=== PATIENT | female | born 1985 | race Caucasian/White ===

== ENCOUNTER 2017-02-18 14:41 | Inpatient (IN) | payer OTHER ==
[2017-02-18 16:41] VITALS: BMI 28.7
[2017-02-18] MEDS ORDERED: MAG HYDROX/AL HYDROX/SIMETH 30 ML UNIT-DOSE CUP PO PRN (20:24)
[2017-02-18] MEDS ORDERED: diazePAM 5 MG TABLET PO ONE (20:24)
[2017-02-18] MEDS ORDERED: MAGNESIUM HYDROX 2400MG/30ML ORAL SUSPENSION 30 ML CUP PO PRN (20:24)
[2017-02-18] MEDS ORDERED: LOPERAMIDE HCL 2 MG CAPSULE PO PRN (20:24)
[2017-02-18] MEDS ORDERED: MAGNESIUM CITRATE 300 ML BOTTLE PO PRN (20:24)
[2017-02-18] MEDS ORDERED: MENTHOL/PHENOL 1 EACH UD MM PRN (20:24)
[2017-02-18] MEDS ORDERED: NICOTINE POLACRILEX 4 MG GUM BC PRN (20:24)
[2017-02-18] MEDS ORDERED: guaiFENesin/D-METHORPHAN HB 10 ML UNIT-DOSE CUPS PO PRN (20:24)
--- NOTE | 2017-02-18 20:24 | HP ---
CIWA Score - CIWA Score Nausea/Vomitin-Mild Nausea/No Vomiting Muscle Tremors: 4-Moderate,w/Arms Extend Anxiety: 4-Mod. Anxious/Guarded Agitation: 4-Moderately Restless Paroxysmal Sweats: 1-Minimal Palms Moist Orientation: 0-Oriented Tacttile Disturbances: 0-None Auditory Disturbances: 0-None Visual Disturbances: 0-None Headache: 0-None Present CIWA-Ar Total Score: 14 Admission ROS B[facility] - HPI Chief Complaint: WITHDRAWAL SX Allergies/Adverse Reactions: Allergies Allergy/AdvReac Type Severity Reaction Status Date / Time No Known Allergies Allergy Verified 02/18/17 17:34 History of Present Illness: 31 YEARS OLD FEMALE WITH LONG HISTORY OF ALCOHOL XANAX NICOTINE DEPENDENCE DENIES MEDICAL ISSUE HAS DEPRESSIN IS ADMITTED TO DETOX Exam Limitations: No Limitations - Ebola screening Have you traveled outside of the country in the last 21 days: No Have you had contact with anyone from an Ebola affected area: No Have you been sick,other than usual withdrawal symptoms: No Do you have a fever: No - Review of Systems Constitutional: Chills, Changes in sleep, Weight Stable EENT: reports: No Symptoms Reported Respiratory: reports: No Symptoms reported Cardiac: reports: No Symptoms Reported GI: reports: Nausea, Poor Fluid Intake, Abdominal cramping : reports: No Symptoms Reported Musculoskeletal: reports: No Symptoms Reported Integumentary: reports: No Symptoms Reported Neuro: reports: Tremors Endocrine: reports: No Symptoms Reported Hematology: reports: No Symptoms Reported Psychiatric: reports: Judgement Intact, Depressed Other Systems: Reviewed and Negative Patient History - Patient Medical History Hx Anemia: No Hx Asthma: No Hx Chronic Obstructive Pulmonary Disease (COPD): No Hx Cancer: No Hx Cardiac Disorders: No Hx Congestive Heart Failure: No Hx Hypertension: No Hx Hypercholesterolemia: No Hx Pacemaker: No HX Cerebrovascular Accident: No Hx Seizures: No Hx Dementia: No Hx Diabetes: No Hx Gastrointestinal Disorders: No Hx Liver Disease: No Hx Genitourinary Disorders: No Hx Sexually Transmitted Disorders: No Hx Renal Disease (ESRD): No Hx Thyroid Disease: No Hx Human Immunodeficiency Virus (HIV): No Hx Hepatitis C: No Hx Depression: Yes Hx Suicide Attempt: No Hx Bipolar Disorder: No Hx Schizophrenia: No - Patient Surgical History Past Surgical History: No - PPD History Previous Implant?: Yes Documented Results: Negative w/o proof Implanted On Prior [facility] Admission?: No PPD to be Administered?: Yes - Reproductive History Patient is a Female of Child Bearing Age (11 -55 yrs old): Yes Last Menstrual Period: 02/04/17 Patient : No - Smoking Cessation Smoking history: Current every day smoker Have you smoked in the past 12 months: Yes Aproximately how many cigarettes per day: 20 Cigars Per Day: 0 Hx Chewing Tobacco Use: No Initiated information on smoking cessation: Yes 'Breaking Loose' booklet given: 02/18/17 - Substance & Tx. History Hx Alcohol Use: Yes Hx Substance Use: Yes Substance Use Type: Alcohol, Cocaine, Marijuana, Tranquilizers Hx Substance Use Treatment: Yes - Substances Abused Alprazolam (Xanax) Route: Oral Frequency: Daily Amount used: 14mg Age of first use: 30 Date of Last Use: 02/17/17 Cocaine Route: Inhalation Frequency: 1-2 times per week Amount used: 3 grams Age of first use: 20 Date of Last Use: 02/17/17 Marijuana/Hashish Route: Smoking Frequency: Daily Amount used: 10 blunts Age of first use: 17 Date of Last Use: 02/18/17 Alcohol Route: Oral Frequency: 1-2 times per week Amount used: 1 pint cognac Age of first use: 17 Date of Last Use: 02/16/17 percocet Route: Oral Frequency: 3-6 times per week Amount used: 5- 10mg pill Age of first use: 30 Date of Last Use: 02/17/17 Family Disease History - Family Disease History Family History: Denies Admission Physical Exam S - Vital Signs Vital Signs: Vital Signs - 24 hr 02/18/17 16:36 Temperature 96.4 F L Pulse Rate 78 Respiratory 20 Rate Blood Pressure 112/75 - Physical General Appearance: Yes: Nourished, Appropriately Dressed, Mild Distress, Tremorous, Irritable, Sweating, Anxious HEENTM: Yes: Hearing grossly Normal, Normal ENT Inspection, Normocephalic, Normal Voice Respiratory: Yes: Chest Non-Tender, Lungs Clear, Normal Breath Sounds, No Respiratory Distress, No Accessory Muscle Use Neck: Yes: Supple, Trachea in good position Breast: Yes: Breasts Symetrical Cardiology: Yes: Regular Rhythm, Regular Rate, S1, S2 Abdominal: Yes: Non Tender, Soft Genitourinary: Yes: Within Normal Limits Back: Yes: Normal Inspection Musculoskeletal: Yes: full range of Motion, Gait Steady Extremities: Yes: Normal Range of Motion, Non-Tender, Tremors Neurological: Yes: Alert, Motor Strength 5/5, Normal Response, Depressed Affect Integumentary: Yes: Warm Lymphatic: Yes: Within Normal Limits - Diagnostic (1) Sedative, hypnotic or anxiolytic dependence with withdrawal, uncomplicated Current Visit: Yes Status: Acute (2) Nicotine dependence Current Visit: Yes Status: Acute Qualifiers: Nicotine product type: cigarettes Substance use status: in withdrawal Qualified Code(s): F17.213 - Nicotine dependence, cigarettes, with withdrawal (3) Depression Current Visit: Yes Status: Suspected Qualifiers: Depression Type: dysthymia Qualified Code(s): F34.1 - Dysthymic disorder Cleared for Admission [facility] - Detox or Rehab [facility] Level of Care: Medically Managed Detox Regimen/Protocol: Valium [facility] Breath Alcohol Content Breath Alcohol Content: 0 Urine Pregancy Test - Result Urine Test Results: Negative- NO Line Present Urine Drug Screen - Results Drug Screen Negative: No Urine Drug Screen Results: THC-Marijuana, MAXI-Cocaine, BZO-Benzodiazepines
[2017-02-18] MEDS: THIAMINE HCL 100 MG TABLET (FP) PO SCH (21:10)
[2017-02-18] MEDS: diphenhydrAMINE HCL 50 MG CAPSULE PO PRN (21:10)
[2017-02-18] MEDS: diazePAM 5 MG TABLET PO SCH (22:36)
[2017-02-18 23:09] LABS: URINE APPEARANCE TURBID; URINE BILIRUBIN NEGATIVE (NEGATIVE); URINE BLOOD NEGATIVE (NEGATIVE); URINE COLOR LTYELLOW; URINE GLUCOSE (UA) NEGATIVE (NEGATIVE); URINE KETONE NEGATIVE (NEGATIVE); URINE LEUK ESTERASE NEGATIVE (NEGATIVE); URINE NITRITE NEGATIVE (NEGATIVE); URINE PROTEIN NEGATIVE (NEGATIVE); URINE UROBILINOGEN NEGATIVE E.U./dl (0.2-1.0)
[2017-02-19] MEDS: diazePAM 5 MG TABLET PO SCH ×3 (05:53→22:14)
--- NOTE | 2017-02-19 10:04 | PN ---
BHS Progress Note (SOAP) Subjective: sweats, shakes left eye bump , vaginal d/c Objective: 02/19/17 10:03 Vital Signs Temperature 97.2 F L 02/19/17 06:00 Pulse Rate 82 02/19/17 06:00 Respiratory Rate 18 02/19/17 06:00 Blood Pressure 125/81 02/19/17 06:00 O2 Sat by Pulse Oximetry (%) 02/19/17 10:36 pt aox3 in nad lying in bed os chalzion Assessment: 02/19/17 10:03 withdrawal sx;s 02/19/17 10:37 chalzion os 02/19/17 10:39 vaginal d/c Plan: cont. detox increase fluids warm compresses f/up with opthalmology at d/c doxycline 100mg bid diflucan 150mg x 1
[2017-02-19 10:09] LABS: MCH 30.9 pg (25.7-33.7); MCHC 33.7 g/dl (32.0-36.0); MEAN CELL VOLUME 91.7 fl (80-96); MEAN PLT VOLUME 7.9 fl (7.5-11.1); PLATELET COUNT 265 K/MM3 (134-434); WHITE BLOOD COUNT 6.1 K/mm3 (4.0-10.0)
[2017-02-19 10:26] LABS: ALK PHOS 60 U/L (45-117); ANION GAP 6 (8-16); BILIRUBIN,TOTAL 0.3 mg/dL (0.2-1.0); CALCIUM 9.1 mg/dL (8.5-10.1); CO2 27 mmol/L (21-32); CREATININE 0.8 mg/dL (0.55-1.02); GLUCOSE,RANDOM 92 mg/dL (74-106); SGOT/AST 15 U/L (15-37); SGPT/ALT 19 U/L (12-78); TOT PROT 7.4 g/dl (6.4-8.2)
[2017-02-19] MEDS: diazePAM 5 MG TABLET PO PRN ×2 (11:12→19:34)
[2017-02-19] MEDS: PRENATAL VITAMINS W/ FOLIC ACID TABLET (FP) PO SCH (11:12)
[2017-02-19] MEDS: NICOTINE 21 MG/24 HOURS TOPICAL PATCH TD SCH (11:14)
[2017-02-19 11:39] LABS: HIV 1 & 2 AB NEGATIVE; HIV 1 AGp24 NEGATIVE
--- NOTE | 2017-02-19 12:00 | EKG ---
Test Reason : Blood Pressure : / mmHG Vent. Rate : 064 BPM Atrial Rate : 064 BPM P-R Int : 170 ms QRS Dur : 088 ms QT Int : 404 ms P-R-T Axes : 054 059 059 degrees QTc Int : 416 ms SINUS RHYTHM WITH MARKED SINUS ARRHYTHMIA WITH OCCASIONAL PREMATURE VENTRICULAR COMPLEXES OTHERWISE NORMAL ECG NO PREVIOUS ECGS AVAILABLE Confirmed by LUCIANA PEREZ MD ([id number]) on 02/19/2017 11:59:39 AM Referred By: Ismael Orozco Confirmed By:LUCIANA PEREZ MD
--- NOTE | 2017-02-19 12:00 | EKG ---
Test Reason : Blood Pressure : / mmHG Vent. Rate : 075 BPM Atrial Rate : 075 BPM P-R Int : 178 ms QRS Dur : 084 ms QT Int : 384 ms P-R-T Axes : 059 060 061 degrees QTc Int : 428 ms NORMAL SINUS RHYTHM NORMAL ECG WHEN COMPARED WITH ECG OF 18-FEB-2017 20:15, PREMATURE VENTRICULAR COMPLEXES ARE NO LONGER PRESENT Confirmed by CHRIS JONES, LUCIANA ([id number]) on 02/19/2017 11:59:34 AM Referred By: Ismael Orozco Confirmed By:LUCIANA PEREZ MD
[2017-02-19] MEDS: ACETAMINOPHEN 325 MG TABLET (FP) PO PRN ×2 (14:48→19:37)
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
[2017-02-19] MEDS: THIAMINE HCL 100 MG TABLET (FP) PO SCH (22:14)
[2017-02-19] MEDS: hydrOXYzine PAMOATE 50 MG CAPSULE (FP) PO PRN (22:14)
[2017-02-19] MEDS ORDERED: cloNIDine HCL 0.1 MG TABLET PO ONE (23:07)
[2017-02-19] MEDS ORDERED: CYCLOBENZAPRINE HCL 10 MG TABLET (FP) PO ONE (23:07)
[2017-02-20] MEDS: ACETAMINOPHEN 325 MG TABLET (FP) PO PRN (05:34)
[2017-02-20] MEDS: diazePAM 5 MG TABLET PO PRN ×3 (05:34→17:41)
[2017-02-20] MEDS ORDERED: FLUCONAZOLE 50 MG TABLET PO ONE (09:59)
--- NOTE | 2017-02-20 10:06 | PN ---
[facility] CIWA - CIWA Score Nausea/Vomitin-Mild Nausea/No Vomiting Muscle Tremors: 3 Anxiety: 3 Agitation: 3 Paroxysmal Sweats: 3 Orientation: 0-Oriented Tacttile Disturbances: 0-None Auditory Disturbances: 0-None Visual Disturbances: 0-None Headache: 1-Very Mild CIWA-Ar Total Score: 14 S Progress Note (SOAP) Subjective: nasal congestion vaginal d/c body aches headache interrupted sleep Objective: 02/20/17 10:04 Vital Signs Temperature 97.7 F 02/20/17 09:57 Pulse Rate 80 02/20/17 09:57 Respiratory Rate 20 02/20/17 09:57 Blood Pressure 114/84 02/20/17 09:57 O2 Sat by Pulse Oximetry (%) Laboratory Tests 02/18/17 02/18/17 02/19/17 07:00 22:06 07:00 WBC RBC Hgb Hct MCV MCHC RDW Plt Count MPV Sodium Potassium Chloride Carbon Dioxide Anion Gap BUN Creatinine Creat Clearance w eGFR Random Glucose Calcium Total Bilirubin AST ALT Alkaline Phosphatase Total Protein Albumin Urine Color Ltyellow Urine Appearance Turbid Urine pH 7.0 Ur Specific [place] 1.020 Urine Protein Negative Urine Glucose (UA) Negative Urine Ketones Negative Urine Blood Negative Urine Nitrite Negative Urine Bilirubin Negative Urine Urobilinogen Negative Ur Leukocyte Esterase Negative RPR Titer Hepatitis C Antibody <0.1 HIV 1&2 Antibody Screen Negative HIV P24 Antigen Negative 02/19/17 02/19/17 02/19/17 07:00 07:00 07:00 WBC 6.1 RBC 4.49 Hgb 13.9 Hct 41.1 MCV 91.7 MCHC 33.7 RDW 13.0 Plt Count 265 MPV 7.9 Sodium 138 Potassium 4.3 Chloride 105 Carbon Dioxide 27 Anion Gap 6 L BUN 11 Creatinine 0.8 Creat Clearance w eGFR > 60 Random Glucose 92 Calcium 9.1 Total Bilirubin 0.3 AST 15 ALT 19 Alkaline Phosphatase 60 Total Protein 7.4 Albumin 4.0 Urine Color Urine Appearance Urine pH Ur Specific [place] Urine Protein Urine Glucose (UA) Urine Ketones Urine Blood Urine Nitrite Urine Bilirubin Urine Urobilinogen Ur Leukocyte Esterase RPR Titer Nonreactive Hepatitis C Antibody HIV 1&2 Antibody Screen HIV P24 Antigen awake/alert ambulating no acute distress Assessment: 02/20/17 10:05 withdrawal sx Plan: continue detox increase fluids diflucan po x one ocean spray motrin/tylenol prn
[2017-02-20] MEDS: PRENATAL VITAMINS W/ FOLIC ACID TABLET (FP) PO SCH (10:41)
[2017-02-20] MEDS: diazePAM 5 MG TABLET PO SCH ×2 (10:41→22:22)
[2017-02-20] MEDS: NICOTINE 21 MG/24 HOURS TOPICAL PATCH TD SCH (10:42)
[2017-02-20] MEDS ORDERED: cloNIDine HCL 0.1 MG TABLET PO ONE (10:52)
[2017-02-20] MEDS: IBUPROFEN 400 MG TABLET (FP) PO PRN ×2 (11:40→22:22)
[2017-02-20] MEDS: SODIUM CHLORIDE NASAL SPRAY 44 ML BOTTLE NS PRN ×2 (11:40→22:23)
[2017-02-20] MEDS: hydrOXYzine PAMOATE 50 MG CAPSULE (FP) PO PRN (20:09)
[2017-02-20] MEDS: P-EPHED 60MG/TRIPROLIDI 2.5MG TABLET PO PRN (20:46)
[2017-02-20] MEDS: THIAMINE HCL 100 MG TABLET (FP) PO SCH (22:22)
[2017-02-20] MEDS: CYCLOBENZAPRINE HCL 10 MG TABLET (FP) PO PRN (22:22)
[2017-02-20] MEDS: diphenhydrAMINE HCL 50 MG CAPSULE PO PRN (22:24)
[2017-02-21] MEDS: diazePAM 5 MG TABLET PO PRN ×3 (06:58→16:46)
[2017-02-21] MEDS: diazePAM 5 MG TABLET PO SCH ×2 (10:59→22:17)
[2017-02-21] MEDS: PRENATAL VITAMINS W/ FOLIC ACID TABLET (FP) PO SCH (10:59)
[2017-02-21] MEDS: cloNIDine HCL 0.1 MG TABLET PO SCH (11:00)
[2017-02-21] MEDS: NICOTINE 21 MG/24 HOURS TOPICAL PATCH TD SCH (11:00)
--- NOTE | 2017-02-21 11:18 | PN ---
[facility] Progress Note (SOAP) Subjective: irritable interrupted sleep agitation Objective: 02/21/17 11:17 Vital Signs Temperature 97.1 F L 02/21/17 10:18 Pulse Rate 88 02/21/17 10:18 Respiratory Rate 16 02/21/17 10:18 Blood Pressure 117/73 02/21/17 10:18 O2 Sat by Pulse Oximetry (%) awake/alert ambulating no acute distress Assessment: 02/21/17 11:18 withdrawal sx Plan: continue detox d/c in am
[2017-02-21] MEDS: IBUPROFEN 400 MG TABLET (FP) PO PRN (12:29)
[2017-02-21] MEDS: P-EPHED 60MG/TRIPROLIDI 2.5MG TABLET PO PRN ×2 (12:31→20:08)
[2017-02-21] MEDS: ACETAMINOPHEN 325 MG TABLET (FP) PO PRN (20:07)
[2017-02-21] MEDS: hydrOXYzine PAMOATE 50 MG CAPSULE (FP) PO PRN (22:17)
[2017-02-21] MEDS: THIAMINE HCL 100 MG TABLET (FP) PO SCH (22:17)
[2017-02-21] MEDS: CYCLOBENZAPRINE HCL 10 MG TABLET (FP) PO PRN (22:18)
[2017-02-22] MEDS: diphenhydrAMINE HCL 50 MG CAPSULE PO PRN (00:44)
[2017-02-22] MEDS: hydrOXYzine PAMOATE 50 MG CAPSULE (FP) PO PRN (05:34)
[2017-02-22] MEDS: P-EPHED 60MG/TRIPROLIDI 2.5MG TABLET PO PRN (05:34)
[2017-02-22] MEDS: ACETAMINOPHEN 325 MG TABLET (FP) PO PRN (05:34)
[2017-02-22 06:49] VITALS: BP 106/61; PULSE 79; TEMP 97.4
--- NOTE | 2017-02-22 09:30 | DS ---
[facility] Detox Discharge Summary Admission Date: 02/18/17 Discharge Date: 02/22/17 - History Present History: Alcohol Dependence, Cannabis Dependence, Cocaine Dependence, Sedative Dependence Pertinent Past History: Insomnia - Physical Exam Results Vital Signs: Vital Signs Temperature 97.4 F L 02/22/17 06:49 Pulse Rate 79 02/22/17 06:49 Respiratory Rate 16 02/22/17 06:49 Blood Pressure 106/61 02/22/17 06:49 O2 Sat by Pulse Oximetry (%) Pertinent Admission Physical Exam Findings: Withdrawal sx. Laboratory Last Values WBC 6.1 K/mm3 (4.0-10.0) 02/19/17 07:00 RBC 4.49 M/mm3 (3.60-5.2) 02/19/17 07:00 Hgb 13.9 GM/dL (10.7-15.3) 02/19/17 07:00 Hct 41.1 % (32.4-45.2) 02/19/17 07:00 MCV 91.7 fl (80-96) 02/19/17 07:00 MCHC 33.7 g/dl (32.0-36.0) 02/19/17 07:00 RDW 13.0 % (11.6-15.6) 02/19/17 07:00 Plt Count 265 K/MM3 (134-434) 02/19/17 07:00 MPV 7.9 fl (7.5-11.1) 02/19/17 07:00 Sodium 138 mmol/L (136-145) 02/19/17 07:00 Potassium 4.3 mmol/L (3.5-5.1) 02/19/17 07:00 Chloride 105 mmol/L (98-107) 02/19/17 07:00 Carbon Dioxide 27 mmol/L (21-32) 02/19/17 07:00 Anion Gap 6 (8-16) L 02/19/17 07:00 BUN 11 mg/dL (7-18) 02/19/17 07:00 Creatinine 0.8 mg/dL (0.55-1.02) 02/19/17 07:00 Creat Clearance w eGFR > 60 (>60) 02/19/17 07:00 Random Glucose 92 mg/dL (74-106) 02/19/17 07:00 Calcium 9.1 mg/dL (8.5-10.1) 02/19/17 07:00 Total Bilirubin 0.3 mg/dL (0.2-1.0) 02/19/17 07:00 AST 15 U/L (15-37) 02/19/17 07:00 ALT 19 U/L (12-78) 02/19/17 07:00 Alkaline Phosphatase 60 U/L (45-117) 02/19/17 07:00 Total Protein 7.4 g/dl (6.4-8.2) 02/19/17 07:00 Albumin 4.0 g/dl (3.4-5.0) 02/19/17 07:00 Urine Color Ltyellow 02/18/17 22:06 Urine Appearance Turbid 02/18/17 22:06 Urine pH 7.0 (5.0-8.0) 02/18/17 22:06 Ur Specific [place] 1.020 (1.005-1.025) 02/18/17 22:06 Urine Protein Negative (NEGATIVE) 02/18/17 22:06 Urine Glucose (UA) Negative (NEGATIVE) 02/18/17 22:06 Urine Ketones Negative (NEGATIVE) 02/18/17 22:06 Urine Blood Negative (NEGATIVE) 02/18/17 22:06 Urine Nitrite Negative (NEGATIVE) 02/18/17 22:06 Urine Bilirubin Negative (NEGATIVE) 02/18/17 22:06 Urine Urobilinogen Negative E.U./dl (0.2-1.0) 02/18/17 22:06 Ur Leukocyte Esterase Negative (NEGATIVE) 02/18/17 22:06 RPR Titer Nonreactive (NONREACTIVE) 02/19/17 07:00 Hepatitis C Antibody <0.1 s/co ratio (0.0-0.9) 02/18/17 07:00 HIV 1&2 Antibody Screen Negative 02/19/17 07:00 HIV P24 Antigen Negative 02/19/17 07:00 labs noted - Treatment Hospital Course: Detox Protocol Followed, Detoxed Safely, Responded well, Discharged Condition Good, Rehab Referral Accepted Patient has Accepted a Rehab Referral to: Self Help group - Medication Discharge Medications: Ambulatory Orders NK [No Known Home Medication] 02/18/17 - Diagnosis (1) Cocaine dependence Current Visit: Yes Status: Acute Qualifiers: Substance use status: uncomplicated Qualified Code(s): F14.20 - Cocaine dependence, uncomplicated (2) Insomnia Current Visit: Yes Status: Acute Qualifiers: Insomnia type: alcohol-induced Qualified Code(s): F10.982 - Alcohol use, unspecified with alcohol-induced sleep disorder (3) Marijuana dependence Current Visit: Yes Status: Acute (4) Nicotine dependence Current Visit: Yes Status: Acute Qualifiers: Nicotine product type: cigarettes Substance use status: in withdrawal Qualified Code(s): F17.213 - Nicotine dependence, cigarettes, with withdrawal (5) Sedative, hypnotic or anxiolytic dependence with withdrawal, uncomplicated Current Visit: Yes Status: Acute (6) Substance induced mood disorder Current Visit: Yes Status: Acute - AMA Did Patient Leave Against Medical Advice: No
[2017-02-22] MEDS: PRENATAL VITAMINS W/ FOLIC ACID TABLET (FP) PO SCH (10:00)
[2017-02-22] MEDS: cloNIDine HCL 0.1 MG TABLET PO SCH (10:00)
[2017-02-22] MEDS ORDERED: diazePAM 5 MG TABLET PO SCH (10:00)
== END 2017-02-22 10:12 | disposition home or self-care (01) | DRG 773 ==
LOC: YASAS 14:41 → Y6N 19:02
PROVIDERS: ADMIT Internal Medicine Addiction Medicine; ATTEND Internal Medicine Addiction Medicine
PROC: HZ2ZZZZ Detoxification Services for Substance Abuse Treatment (ICD-10-PCS; principal; 2017-02-22)
DX: F11.20 Opioid dependence, uncomplicated (principal); F13.230 Sedative, hypnotic or anxiolytic dependence with withdrawal, uncomplicated; F10.230 Alcohol dependence with withdrawal, uncomplicated; F14.20 Cocaine dependence, uncomplicated; F12.20 Cannabis dependence, uncomplicated; F17.213 Nicotine dependence, cigarettes, with withdrawal; F10.982 Alcohol use, unspecified with alcohol-induced sleep disorder; F19.24 Other psychoactive substance dependence with psychoactive substance-induced mood disorder; F34.1 Dysthymic disorder
CPT/HCPCS: 36415; 80053; 81003; 85027; 86593; 86803; 87389; 93005; 93010; J0735

== ENCOUNTER 2018-02-09 17:50 | Inpatient (IN) | payer OTHER ==
[2018-02-09 18:43] VITALS: BMI 30.7
--- NOTE | 2018-02-09 19:41 | HP ---
Admission [facility] Chief Complaint: " I am here for rehab" Allergies/Adverse Reactions: Allergies Allergy/AdvReac Type Severity Reaction Status Date / Time No Known Allergies Allergy Verified 02/09/18 18:59 History of Present Illness: 32 yo female with hx of THC, cocaine, and alcohol dependence is here seeking rehabilitation. Denies suicidal / homicidal ideation. Denies hx of blackout or seizures. Last detox [facility] 02/18/17 - 02/22/17. Longest period of sobriety 2 months. Exam Limitations: No Limitations - Ebola screening Have you been sick,other than usual withdrawal symptoms: No - Review of Systems Constitutional: Changes in sleep EENT: reports: No Symptoms Reported Respiratory: reports: No Symptoms reported Cardiac: reports: No Symptoms Reported GI: reports: No Symptoms Reported : reports: No Symptoms Reported Musculoskeletal: reports: Joint Pain (lower extremities) Integumentary: reports: No Symptoms Reported Neuro: reports: No Symptoms reported Endocrine: reports: No Symptoms Reported Hematology: reports: No Symptoms Reported Psychiatric: reports: Orientated x3, Anxious Other Systems: Reviewed and Negative Patient History - Patient Medical History Hx Anemia: No Hx Asthma: No Hx Chronic Obstructive Pulmonary Disease (COPD): No Hx Cancer: No Hx Cardiac Disorders: No Hx Congestive Heart Failure: No Hx Hypertension: No Hx Hypercholesterolemia: No Hx Pacemaker: No HX Cerebrovascular Accident: No Hx Seizures: No Hx Dementia: No Hx Diabetes: No Hx Gastrointestinal Disorders: No Hx Liver Disease: No Hx Genitourinary Disorders: No Hx Sexually Transmitted Disorders: No Hx Renal Disease (ESRD): No Hx Thyroid Disease: No Hx Human Immunodeficiency Virus (HIV): No ( last tested 2 months ago ) Hx Hepatitis C: No Hx Depression: Yes Hx Suicide Attempt: No Hx Bipolar Disorder: No Hx Schizophrenia: No - Patient Surgical History Past Surgical History: No - PPD History Previous Implant?: Yes Documented Results: Negative w/proof Date: 02/20/17 PPD to be Administered?: No - Reproductive History Patient is a Female of Child Bearing Age (11 -55 yrs old): Yes Last Menstrual Period: 01/20/18 Patient : No - Smoking Cessation Smoking history: Former smoker Have you smoked in the past 12 months: No Cigars Per Day: 0 Hx Chewing Tobacco Use: No Initiated information on smoking cessation: Yes 'Breaking Loose' booklet given: 02/09/18 - Substance & Tx. History Hx Alcohol Use: Yes Hx Substance Use: Yes Substance Use Type: Alcohol, Cocaine, Marijuana Hx Substance Use Treatment: Yes (Last detox [facility] 02/18/17 - 02/22/17) - Substances Abused Cocaine Route: Inhalation Frequency: Daily Amount used: $200 - $300 Age of first use: 17 Date of Last Use: 02/08/18 Marijuana/Hashish Route: Smoking Frequency: 1-3 times last 30 days Amount used: 2-3 blunts Age of first use: 14 Date of Last Use: 02/08/18 Alcohol Route: Oral Frequency: 3-6 times per week Amount used: 3 pints liquor Age of first use: 16 Date of Last Use: 02/08/18 Family Disease History - Family Disease History Family History: Unable to Obtain Admission Physical Exam [facility] - Vital Signs Vital Signs: Vital Signs - 24 hr 02/09/18 18:09 Temperature 97.9 F Pulse Rate 82 Respiratory 18 Rate Blood Pressure 115/69 - Physical General Appearance: Yes: Nourished, Disheveled, Irritable, Anxious HEENTM: Yes: EOMI, Hearing grossly Normal, Normal ENT Inspection, Normocephalic , Normal Voice, RODRIGO, Pharynx Normal, Tm's normal Respiratory: Yes: Chest Non-Tender, Lungs Clear, Normal Breath Sounds, No Respiratory Distress, No Accessory Muscle Use Neck: Yes: No masses,lesions,Nodules, Trachea in good position Breast: Yes: Breast Exam Deferred Cardiology: Yes: Regular Rhythm, Regular Rate Abdominal: Yes: Normal Bowel Sounds, Non Tender, Soft, Protuberent Genitourinary: Yes: Within Normal Limits Back: Yes: Normal Inspection Musculoskeletal: Yes: full range of Motion, Gait Steady, Pelvis Stable, Muscle Pain (bl lower extremities) Extremities: Yes: Normal Capillary Refill, Normal Inspection, Normal Range of Motion Neurological: Yes: brand leader II-XII NML intact, Fully Oriented, Alert, Motor Strength 5/5, Depressed Affect Integumentary: Yes: Normal Color, Dry, Warm Lymphatic: Yes: Within Normal Limits - Diagnostic (1) Alcohol dependence Current Visit: Yes Status: Acute Qualifiers: Substance use status: uncomplicated Qualified Code(s): F10.20 - Alcohol dependence, uncomplicated (2) Cocaine dependence Current Visit: Yes Status: Acute Qualifiers: Substance use status: uncomplicated Qualified Code(s): F14.20 - Cocaine dependence, uncomplicated (3) Insomnia Current Visit: Yes Status: Acute Qualifiers: Insomnia type: alcohol-induced Qualified Code(s): F10.982 - Alcohol use, unspecified with alcohol-induced sleep disorder (4) Marijuana dependence Current Visit: No Status: Acute (5) Nicotine dependence Current Visit: Yes Status: Acute Qualifiers: Nicotine product type: cigarettes Substance use status: in withdrawal Qualified Code(s): F17.213 - Nicotine dependence, cigarettes, with withdrawal [facility] Breath Alcohol Content Breath Alcohol Content: 0 Urine Pregancy Test - Result Urine Test Results: Negative- NO Line Present Urine Drug Screen - Results Drug Screen Negative: No Urine Drug Screen Results: THC-Marijuana, MAXI-Cocaine Inpatient Rehab Admission - Initial Determination Are CD services needed?: Yes Free of communicable disease: Yes Not in need of hospitalization: Yes - Rehab Admission Criteria Previous failed treatment: Yes Poor recovery environment: Yes Comorbidities: Yes Lacks judgement: Yes Patient is meeting Inpatient Rehab admission criteria:: Yes
[2018-02-09] MEDS ORDERED: LOPERAMIDE HCL 2 MG CAPSULE PO PRN (19:58)
[2018-02-09] MEDS ORDERED: MAG HYDROX/AL HYDROX/SIMETH 30 ML UNIT-DOSE CUP PO PRN (19:58)
[2018-02-09] MEDS ORDERED: MAGNESIUM HYDROX 2400MG/30ML ORAL SUSPENSION 30 ML CUP PO PRN (19:58)
[2018-02-09] MEDS ORDERED: ACETAMINOPHEN 325 MG TABLET (FP) PO PRN (19:58)
[2018-02-09] MEDS ORDERED: NICOTINE POLACRILEX 2 MG GUM BC PRN (19:58)
[2018-02-09] MEDS ORDERED: P-EPHED 60MG/TRIPROLIDI 2.5MG TABLET PO PRN (19:58)
[2018-02-09] MEDS ORDERED: guaiFENesin/D-METHORPHAN HB 10 ML UNIT-DOSE CUPS PO PRN (19:58)
[2018-02-09] MEDS ORDERED: MENTHOL/PHENOL 1 EACH UD MM PRN (19:58)
[2018-02-09] MEDS ORDERED: MAGNESIUM CITRATE 300 ML BOTTLE PO PRN (19:58)
[2018-02-09] MEDS ORDERED: diphenhydrAMINE HCL 25 MG CAPSULE (FP) PO ONE (20:02)
[2018-02-09] MEDS ORDERED: TUBERCULIN PPD 5 TU/0.1ML VIAL ID ONE (20:43)
[2018-02-09] MEDS ORDERED: diphenhydrAMINE HCL 50 MG CAPSULE PO ONE (20:45)
[2018-02-09] MEDS: THIAMINE HCL 100 MG TABLET (FP) PO SCH (22:19)
[2018-02-10 10:04] LABS: HEMATOCRIT 37.4 % (32.4-45.2); HEMOGLOBIN 12.8 GM/dL (10.7-15.3); MCH 30.7 pg (25.7-33.7); MCHC 34.2 g/dl (32.0-36.0); MEAN CELL VOLUME 89.8 fl (80-96); PLATELET COUNT 247 K/MM3 (134-434); RBC 4.16 M/mm3 (3.60-5.2); RDW 13.1 % (11.6-15.6); WHITE BLOOD COUNT 5.3 K/mm3 (4.0-10.0)
[2018-02-10 10:13] LABS: CHLORIDE 110 mmol/L (98-107); POTASSIUM 4.2 mmol/L (3.5-5.1); SODIUM 142 mmol/L (136-145)
[2018-02-10] MEDS: NICOTINE 14 MG/24 HOURS TOPICAL PATCH TD SCH (10:20)
[2018-02-10] MEDS: PRENATAL VITAMINS W/ FOLIC ACID TABLET (FP) PO SCH (10:20)
[2018-02-10 10:36] LABS: ALBUMIN 3.6 g/dl (3.4-5.0); ALK PHOS 56 U/L (45-117); ANION GAP 5 (8-16); BILIRUBIN,TOTAL 1.4 mg/dL (0.2-1.0); BLOOD UREA NITROGEN 14 mg/dL (7-18); CALCIUM 8.3 mg/dL (8.5-10.1); CO2 27 mmol/L (21-32); CREATININE 0.8 mg/dL (0.55-1.02); GLUCOSE,RANDOM 89 mg/dL (74-106); SGOT/AST 20 U/L (15-37); SGPT/ALT 19 U/L (12-78); TOT PROT 6.7 g/dl (6.4-8.2)
[2018-02-10 11:02] LABS: URINE APPEARANCE TURBID; URINE BILIRUBIN NEGATIVE (<2.0 mg/dL); URINE COLOR YELLOW; URINE GLUCOSE (UA) NEGATIVE (NEGATIVE); URINE KETONE TRACE (NEGATIVE); URINE LEUK ESTERASE NEGATIVE (NEGATIVE); URINE NITRITE NEGATIVE (NEGATIVE); URINE UROBILINOGEN NEGATIVE mg/dL (0.2-1.0)
[2018-02-10 11:06] LABS: URINE PROTEIN 1+ (NEGATIVE)
[2018-02-10 11:10] LABS: URINE BACTERIA MANY /hpf (NONE SEEN)
[2018-02-10] MEDS: hydrOXYzine PAMOATE 50 MG CAPSULE (FP) PO PRN ×2 (16:01→21:15)
[2018-02-10] MEDS: IBUPROFEN 400 MG TABLET (FP) PO PRN (16:02)
--- NOTE | 2018-02-10 16:23 | EKG ---
Test Reason : Blood Pressure : / mmHG Vent. Rate : 077 BPM Atrial Rate : 077 BPM P-R Int : 168 ms QRS Dur : 084 ms QT Int : 422 ms P-R-T Axes : 063 069 066 degrees QTc Int : 477 ms NORMAL SINUS RHYTHM NORMAL ECG WHEN COMPARED WITH ECG OF 19-FEB-2017 05:24, QT HAS LENGTHENED Confirmed by MD Tamir, Kevin ([id number]) on 02/10/2018 4:22:33 PM Referred By: Martha Krishna Confirmed By:Kevin Garnett MD
[2018-02-10] MEDS: MELATONIN 5 MG TABLETS PO PRN (21:15)
[2018-02-10] MEDS: THIAMINE HCL 100 MG TABLET (FP) PO SCH (21:15)
[2018-02-11] MEDS: hydrOXYzine PAMOATE 50 MG CAPSULE (FP) PO PRN ×3 (07:46→21:15)
[2018-02-11] MEDS: IBUPROFEN 400 MG TABLET (FP) PO PRN (07:46)
--- NOTE | 2018-02-11 09:16 | HP ---
Psychiatrist Admission - Data Date of interview: 02/11/18 Admission source: [facility] Identifying data: Dave is the first admission to [address] [place] [address] for this 32 years old H single female mother of 13 yo daughter, domiciled,employed. Medical History: unremarkable Psychiatric History: denies Physical/Sexual Abuse/Trauma History: denirs Vital Signs: Vital Signs - 24 hr 02/11/18 02/11/18 02/11/18 00:30 03:30 07:06 Temperature 97.9 F Pulse Rate 80 Respiratory 17 17 18 Rate Blood Pressure 115/80 Allergies/Adverse Reactions: Allergies Allergy/AdvReac Type Severity Reaction Status Date / Time No Known Allergies Allergy Verified 02/09/18 18:59 Concur with the findings of this exam: Yes - Substance Abuse/Tx History Hx Alcohol Use: Yes (reports drinking since 16 yo,vodka) Hx Substance Use: Yes Substance Use Type: Alcohol, Cocaine Hx Substance Use Treatment: Yes (this is her first inpatient rehabilitation , longest abstinence just a few m) Mental Status Exam - Mental Status Exam Alert and Oriented to: Time, Place, Person Cognitive Function: Grossly Intact Patient Appearance: Well Groomed Mood: Sad Affect: Mood Congruent, Labile Patient Behavior: Cooperative Speech Pattern: Clear Voice Loudness: Normal Thought Process: Goal Oriented Thought Disorder: Not Present Hallucinations: Denies Suicidal Ideation: Denies Homicidal Ideation: Denies Insight/Judgement: Fair Sleep: Well Appetite: Good Muscle strength/Tone: Normal Psychiatric Findings - Problem List ([place] 1, 2,3) (1) Alcohol dependence Current Visit: Yes Status: Chronic Qualifiers: Substance use status: uncomplicated Qualified Code(s): F10.20 - Alcohol dependence, uncomplicated (2) Cocaine dependence Current Visit: Yes Status: Chronic Qualifiers: Substance use status: uncomplicated Qualified Code(s): F14.20 - Cocaine dependence, uncomplicated (3) Nicotine dependence Current Visit: Yes Status: Chronic Qualifiers: Nicotine product type: cigarettes Substance use status: in withdrawal Qualified Code(s): F17.213 - Nicotine dependence, cigarettes, with withdrawal (4) Marijuana dependence Current Visit: Yes Status: Chronic (5) Opiate dependence Current Visit: Yes Status: Chronic (6) Substance induced mood disorder Current Visit: No Status: Acute (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
[2018-02-11] MEDS: PRENATAL VITAMINS W/ FOLIC ACID TABLET (FP) PO SCH (10:12)
[2018-02-11] MEDS: NICOTINE 14 MG/24 HOURS TOPICAL PATCH TD SCH (10:12)
[2018-02-11] MEDS: MELATONIN 5 MG TABLETS PO PRN (21:15)
[2018-02-11] MEDS: THIAMINE HCL 100 MG TABLET (FP) PO SCH (21:15)
[2018-02-12] MEDS: hydrOXYzine PAMOATE 50 MG CAPSULE (FP) PO PRN ×3 (09:58→19:02)
[2018-02-12] MEDS: NICOTINE 14 MG/24 HOURS TOPICAL PATCH TD SCH (09:58)
[2018-02-12] MEDS: PRENATAL VITAMINS W/ FOLIC ACID TABLET (FP) PO SCH (09:58)
--- NOTE | 2018-02-12 14:35 | PN ---
[facility] Progress Note Note: Vital Signs Temperature 97.4 F L 02/12/18 06:42 Pulse Rate 62 02/12/18 06:42 Respiratory Rate 18 02/12/18 06:42 Blood Pressure 121/83 02/12/18 06:42 O2 Sat by Pulse Oximetry (%) Laboratory Last Values WBC 5.3 K/mm3 (4.0-10.0) 02/10/18 07:30 RBC 4.16 M/mm3 (3.60-5.2) 02/10/18 07:30 Hgb 12.8 GM/dL (10.7-15.3) 02/10/18 07:30 Hct 37.4 % (32.4-45.2) 02/10/18 07:30 MCV 89.8 fl (80-96) 02/10/18 07:30 MCH 30.7 pg (25.7-33.7) 02/10/18 07:30 MCHC 34.2 g/dl (32.0-36.0) 02/10/18 07:30 RDW 13.1 % (11.6-15.6) 02/10/18 07:30 Plt Count 247 K/MM3 (134-434) 02/10/18 07:30 MPV 8.0 fl (7.5-11.1) 02/10/18 07:30 Sodium 142 mmol/L (136-145) 02/10/18 07:30 Potassium 4.2 mmol/L (3.5-5.1) 02/10/18 07:30 Chloride 110 mmol/L (98-107) H 02/10/18 07:30 Carbon Dioxide 27 mmol/L (21-32) 02/10/18 07:30 Anion Gap 5 (8-16) L 02/10/18 07:30 BUN 14 mg/dL (7-18) 02/10/18 07:30 Creatinine 0.8 mg/dL (0.55-1.02) 02/10/18 07:30 Creat Clearance w eGFR > 60 (>60) 02/10/18 07:30 Random Glucose 89 mg/dL (74-106) 02/10/18 07:30 Calcium 8.3 mg/dL (8.5-10.1) L 02/10/18 07:30 Total Bilirubin 1.4 mg/dL (0.2-1.0) H D 02/10/18 07:30 AST 20 U/L (15-37) 02/10/18 07:30 ALT 19 U/L (12-78) 02/10/18 07:30 Alkaline Phosphatase 56 U/L (45-117) 02/10/18 07:30 Total Protein 6.7 g/dl (6.4-8.2) 02/10/18 07:30 Albumin 3.6 g/dl (3.4-5.0) 02/10/18 07:30 Urine Color Yellow 02/09/18 08:00 Urine Appearance Turbid 02/09/18 08:00 Urine pH 5.0 (5.0-8.0) D 02/09/18 08:00 Ur Specific [place] 1.036 (1.001-1.035) H 02/09/18 08:00 Urine Protein 1+ (NEGATIVE) H 02/09/18 08:00 Urine Glucose (UA) Negative (NEGATIVE) 02/09/18 08:00 Urine Ketones Trace (NEGATIVE) H 02/09/18 08:00 Urine Blood Negative (NEGATIVE) 02/09/18 08:00 Urine Nitrite Negative (NEGATIVE) 02/09/18 08:00 Urine Bilirubin Negative (<2.0 mg/dL) 02/09/18 08:00 Urine Urobilinogen Negative mg/dL (0.2-1.0) 02/09/18 08:00 Ur Leukocyte Esterase Negative (NEGATIVE) 02/09/18 08:00 Urine WBC (Auto) None /hpf (3-5) 02/09/18 08:00 Urine RBC (Auto) 4 /hpf (0-3) 02/09/18 08:00 Urine Bacteria Many /hpf (NONE SEEN) 02/09/18 08:00 RPR Titer Nonreactive (NONREACTIVE) 02/10/18 07:30 labs review repeat U/A
[2018-02-12] MEDS: IBUPROFEN 400 MG TABLET (FP) PO PRN (15:46)
[2018-02-12] MEDS: THIAMINE HCL 100 MG TABLET (FP) PO SCH (21:08)
[2018-02-12] MEDS: MELATONIN 5 MG TABLETS PO PRN (21:09)
[2018-02-13] MEDS: hydrOXYzine PAMOATE 50 MG CAPSULE (FP) PO PRN ×4 (08:32→22:29)
[2018-02-13] MEDS: NICOTINE 14 MG/24 HOURS TOPICAL PATCH TD SCH (09:25)
[2018-02-13] MEDS: PRENATAL VITAMINS W/ FOLIC ACID TABLET (FP) PO SCH (09:25)
[2018-02-13 14:18] LABS: URINE APPEARANCE SLCLOUDY; URINE BILIRUBIN NEGATIVE (<2.0 mg/dL); URINE COLOR YELLOW; URINE GLUCOSE (UA) NEGATIVE (NEGATIVE); URINE KETONE NEGATIVE (NEGATIVE); URINE LEUK ESTERASE NEGATIVE (NEGATIVE); URINE NITRITE NEGATIVE (NEGATIVE); URINE PROTEIN NEGATIVE (NEGATIVE); URINE UROBILINOGEN NEGATIVE mg/dL (0.2-1.0)
[2018-02-13 14:27] LABS: EPI CELLS FEW /HPF (FEW); URINE MUCUS RARE
[2018-02-13] MEDS: IBUPROFEN 400 MG TABLET (FP) PO PRN (16:07)
[2018-02-13] MEDS: MELATONIN 5 MG TABLETS PO PRN (22:29)
[2018-02-13] MEDS: THIAMINE HCL 100 MG TABLET (FP) PO SCH (22:30)
[2018-02-13] MEDS: diphenhydrAMINE HCL 50 MG CAPSULE PO SCH (23:00)
[2018-02-14] MEDS: NICOTINE 14 MG/24 HOURS TOPICAL PATCH TD SCH (10:15)
[2018-02-14] MEDS: PRENATAL VITAMINS W/ FOLIC ACID TABLET (FP) PO SCH (12:15)
[2018-02-14] MEDS: hydrOXYzine PAMOATE 50 MG CAPSULE (FP) PO PRN ×2 (12:47→16:52)
[2018-02-14] MEDS: THIAMINE HCL 100 MG TABLET (FP) PO SCH (21:30)
[2018-02-14] MEDS: diphenhydrAMINE HCL 50 MG CAPSULE PO SCH (21:31)
[2018-02-14] MEDS: MELATONIN 5 MG TABLETS PO PRN (21:32)
[2018-02-15] MEDS: hydrOXYzine PAMOATE 50 MG CAPSULE (FP) PO PRN ×3 (08:24→19:03)
[2018-02-15] MEDS: PRENATAL VITAMINS W/ FOLIC ACID TABLET (FP) PO SCH (10:41)
[2018-02-15] MEDS: NICOTINE 14 MG/24 HOURS TOPICAL PATCH TD SCH (10:41)
[2018-02-15] MEDS: MELATONIN 5 MG TABLETS PO PRN (21:05)
[2018-02-15] MEDS: THIAMINE HCL 100 MG TABLET (FP) PO SCH (21:05)
[2018-02-15] MEDS: diphenhydrAMINE HCL 50 MG CAPSULE PO SCH (21:05)
[2018-02-16 07:03] VITALS: BP 128/78; PULSE 70; TEMP 97.1
[2018-02-16] MEDS: NICOTINE 14 MG/24 HOURS TOPICAL PATCH TD SCH (09:55)
[2018-02-16] MEDS: PRENATAL VITAMINS W/ FOLIC ACID TABLET (FP) PO SCH (10:01)
[2018-02-16] MEDS: hydrOXYzine PAMOATE 50 MG CAPSULE (FP) PO PRN (10:01)
--- NOTE | 2018-02-16 10:34 | PN ---
[facility] Progress Note Note: patient requested to be discharge today, her scheduled day on 02/17/18, patient is stable for discharge today.
== END 2018-02-16 10:35 | disposition home or self-care (01) | DRG 772 ==
LOC: YASAS 17:50 → Y3E 19:27
PROVIDERS: ADMIT Psychiatry & Neurology Psychiatry; ATTEND Psychiatry & Neurology Psychiatry
PROC: HZ42ZZZ Group Counseling for Substance Abuse Treatment, Cognitive-Behavioral (ICD-10-PCS; principal; 2018-02-09)
DX: F11.20 Opioid dependence, uncomplicated (principal); F13.20 Sedative, hypnotic or anxiolytic dependence, uncomplicated; F10.20 Alcohol dependence, uncomplicated; F14.20 Cocaine dependence, uncomplicated; F12.20 Cannabis dependence, uncomplicated; F17.213 Nicotine dependence, cigarettes, with withdrawal; F19.24 Other psychoactive substance dependence with psychoactive substance-induced mood disorder; F10.282 Alcohol dependence with alcohol-induced sleep disorder
CPT/HCPCS: 36415; 80053; 81003; 81015; 85027; 86593; 93005; 93010

== ENCOUNTER → 2022-02-22 | Emergency (ER) | payer OTHER ==
[~2022-02-22] MED LIST: IBUPROFEN 600 MG TABLET (FP) PO ONE; MAG HYDROX/AL HYDROX/SIMETH 30 ML UNIT-DOSE CUP ONE
[2022-02-22 13:19] VITALS: BP 115/72; PULSE 83; TEMP 98.5; BMI 32.3
== END ==
LOC: JERFT 13:08
DX: S09.90XA Unspecified injury of head, initial encounter (principal); W22.8XXA Striking against or struck by other objects, initial encounter
CPT/HCPCS: 99281-25

== ENCOUNTER 2022-05-07 13:30 | Inpatient (IN) | payer OTHER ==
[2022-05-07 15:40] VITALS: BMI 30.7
[2022-05-07] MEDS ORDERED: BISMUTH SUBSALICYLATE 524 MG/30 ML PO PRN (15:46)
[2022-05-07] MEDS ORDERED: NICOTINE 10 MG CARTRIDGE (INHALER) IH PRN (15:46)
[2022-05-07] MEDS ORDERED: MAG HYDROX/AL HYDROX/SIMETH 30 ML UNIT-DOSE CUP PO PRN (15:46)
[2022-05-07] MEDS ORDERED: ACETAMINOPHEN 325 MG TABLET (FP) PO PRN ×2 (15:46)
[2022-05-07] MEDS ORDERED: BENZOCAINE/MENTHOL (CHLORASEPTIC ) LOZENGE MM PRN (15:46)
[2022-05-07] MEDS ORDERED: DICYCLOMINE HCL 10 MG CAPSULE PO PRN (15:46)
[2022-05-07] MEDS ORDERED: MAGNESIUM CITRATE 300 ML BOTTLE PO PRN (15:46)
[2022-05-07] MEDS ORDERED: IBUPROFEN 600 MG TABLET (FP) PO PRN (15:46)
[2022-05-07] MEDS ORDERED: NALOXONE HCL (KLOXXADO) 8 MG SPRAY NS PRN (15:46)
[2022-05-07] MEDS ORDERED: LOPERAMIDE HCL 2 MG CAPSULE PO PRN (15:46)
[2022-05-07] MEDS ORDERED: IBUPROFEN 400 MG TABLET (FP) PO PRN (15:46)
[2022-05-07] MEDS ORDERED: MAGNESIUM HYDROX 2400MG/30ML ORAL SUSPENSION 30 ML CUP PO PRN (15:46)
[2022-05-07] MEDS ORDERED: ONDANSETRON *ODT* 4 MG TABLET SL PRN (15:46)
[2022-05-07 18:16] VITALS: RESP 18
[2022-05-07] MEDS: METHOCARBAMOL 500 MG TABLET PO PRN (19:06)
[2022-05-07] MEDS: hydrOXYzine PAMOATE 25 MG CAPSULE (FP) PO SCH ×2 (19:06→22:17)
[2022-05-07] MEDS: PRENATAL VITAMINS W/ FOLIC ACID TABLET (FP) PO SCH (19:11)
[2022-05-07] MEDS: NICOTINE 14 MG/24 HOURS TOPICAL PATCH TD SCH (21:01)
[2022-05-07] MEDS ORDERED: MELATONIN 5 MG TABLETS PO SCH (22:00)
[2022-05-07] MEDS ORDERED: THIAMINE HCL 100 MG TABLET (FP) PO SCH (22:00)
[2022-05-08] MEDS: hydrOXYzine PAMOATE 25 MG CAPSULE (FP) PO SCH ×3 (07:09→14:02)
[2022-05-08] MEDS: METHOCARBAMOL 500 MG TABLET PO PRN (08:42)
[2022-05-08] MEDS ORDERED: amLODIPine BESYLATE 2.5 MG TABLET (FP) PO SCH (10:15)
[2022-05-08] MEDS: PRENATAL VITAMINS W/ FOLIC ACID TABLET (FP) PO SCH (11:21)
[2022-05-08] MEDS: NICOTINE 14 MG/24 HOURS TOPICAL PATCH TD SCH (11:22)
[2022-05-08 12:05] LABS: HEMATOCRIT 40.6 % (32.4-45.2); HEMOGLOBIN 14.2 GM/dL (10.7-15.3); MCH 31.8 pg (25.7-33.7); MCHC 34.9 g/dl (32.0-36.0); MEAN CELL VOLUME 91.2 fl (80-96); MEAN PLT VOLUME 7.7 fl (7.5-11.1); PLATELET COUNT 334 10^3/uL (134-434); RBC 4.45 M/mm3 (3.60-5.2); RDW 13.1 % (11.6-15.6); WHITE BLOOD COUNT 7.1 K/mm3 (4.0-10.0)
[2022-05-08 12:15] LABS: ALBUMIN 3.5 g/dl (3.4-5.0); BLOOD UREA NITROGEN 11.2 mg/dL (7-18); CALCIUM 8.6 mg/dL (8.5-10.1)
[2022-05-08 12:18] LABS: CREATININE 0.8 mg/dL (0.55-1.3)
[2022-05-08 12:20] LABS: BILIRUBIN,TOTAL 0.3 mg/dL (0.2-1); TOT PROT 6.5 g/dl (6.4-8.2)
[2022-05-08 13:02] VITALS: BP 136/76; PULSE 71; TEMP 98.3
== END 2022-05-08 14:20 | disposition home or self-care (01) | DRG 773 ==
LOC: YASAS 13:30 → Y6N 16:20
PROVIDERS: ADMIT Allergy & Immunology; ATTEND Surgery
PROC: HZ2ZZZZ Detoxification Services for Substance Abuse Treatment (ICD-10-PCS; principal; 2022-05-07)
DX: F11.23 Opioid dependence with withdrawal (principal); F10.230 Alcohol dependence with withdrawal, uncomplicated; F14.20 Cocaine dependence, uncomplicated; F15.20 Other stimulant dependence, uncomplicated; F12.20 Cannabis dependence, uncomplicated; F17.210 Nicotine dependence, cigarettes, uncomplicated; F19.282 Other psychoactive substance dependence with psychoactive substance-induced sleep disorder; F19.280 Other psychoactive substance dependence with psychoactive substance-induced anxiety disorder; F41.1 Generalized anxiety disorder; Z28.310 Unvaccinated for COVID-19; Z56.0 Unemployment, unspecified
CPT/HCPCS: 36415; 80053; 81025; 85027; 86780; C9803-CS; U0003; U0005